=== PATIENT | female | born 1960 | race Caucasian/White ===

== ENCOUNTER 2018-11-13 15:44 | Emergency (ER) | payer SELFPAY ==
[~2018-11-13] VITALS: Ht 170.2 cm; Wt 68.0 kg
[2018-11-13 15:46] VITALS: BP 102/64
[2018-11-13] MEDS ORDERED: SODIUM CHLORIDE 0.9% 1,000 ML IV ONE (16:09)
[2018-11-13] MEDS ORDERED: LORAZEPAM 2MG/ML CPJ IM ONE (17:00)
== END 2018-11-13 18:20 | disposition home or self-care (01) ==
LOC: ER 15:53
DX: F10.229 Alcohol dependence with intoxication, unspecified (principal); Y90.9 Presence of alcohol in blood, level not specified; Z53.29 Procedure and treatment not carried out because of patient's decision for other reasons
CPT/HCPCS: 99283; J2060; J7030